=== PATIENT | female | born 1985 | race Caucasian/White ===

== ENCOUNTER 2019-04-07 11:13 | Emergency (ER) | payer OTHER ==
[~2019-04-07] VITALS: Ht 162.6 cm; Wt 58.5 kg
[2019-04-07] MEDS ORDERED: TDAP DIPH,PERTUSS,TET VAC/PF 0.5 ML DISP.SYRIN IM ONE ×2 (11:45→11:47)
--- NOTE | 2019-04-07 11:55 | NUR ---
Patient discharged to home in stable conditon. Written and verbal after care instructions given. Patient verbalizes understanding of instructions.
[2019-04-07 11:56] VITALS: BP 104/68
== END 2019-04-07 11:56 | disposition home or self-care (01) ==
LOC: ER 11:13
DX: S61.257A Open bite of left little finger without damage to nail, initial encounter (principal); W54.0XXA Bitten by dog, initial encounter; Y93.89 Activity, other specified; Y92.89 Other specified places as the place of occurrence of the external cause; Y99.8 Other external cause status
CPT/HCPCS: 90715; A4663